=== PATIENT | male | born 1970 | race Caucasian/White ===

== ENCOUNTER 2019-10-06 19:32 | Emergency (ER) | payer BC ==
--- NOTE | 2019-10-06 19:44 | ERPHSYRPT ---
- History of Present Illness Time Seen by Provider: 10/06/19 19:44 Source: patient Exam Limitations: no limitations Physician History: This is a 49-year-old white male who has suffered no injury to his right hip or right lower extremity but noticed at about 1:00 this morning some pain in his right buttock area. It is traveled caudally down the posterior aspect of his right leg. He has no history of any blood clots and there is no bleeding or clotting disorders. There is been several medical emergencies in his family recently. He is concerned of possibility of a blood clot. He is here for evaluation of this. Method of Injury: other (No injury) Occurred: this morning Quality: intermittent, stabbing Severity of Pain-Max: mild (Filed) Severity of Pain-Current: mild Lower Extremities Pain: hip: right, thigh: right (Posteriorly) Modifying Factors: Improves With: nothing Associated Symptoms: none Allergies/Adverse Reactions: No Known Drug Allergies Allergy (Unverified 10/06/19 20:29) Travel Risk - International Travel Have you traveled outside of the country in past 3 weeks: No - Coronavirus Screening Are you exhibiting any of the following symptoms?: No Close contact with a COVID-19 positive Pt in past 14-21 Days: No - Review of Systems Constitutional: No Symptoms Eyes: No Symptoms Ears, Nose, & Throat: No Symptoms Respiratory: No Symptoms Cardiac: No Symptoms Abdominal/Gastrointestinal: No Symptoms Genitourinary Symptoms: No Symptoms Musculoskeletal: Other (Right hip and posterior upper leg) Skin: No Symptoms Neurological: No Symptoms Psychological: No Symptoms Endocrine: No Symptoms Hematologic/Lymphatic: No Symptoms Immunological/Allergic: No Symptoms All Other Systems: Reviewed and Negative - Past Medical History Pertinent Past Medical History: Yes Neurological History: No Pertinent History ENT History: No Pertinent History Cardiac History: Hypertension Respiratory History: No Pertinent History Endocrine Medical History: No Pertinent History Musculoskeletal History: No Pertinent History GI Medical History: No Pertinent History History: No Pertinent History Psycho-Social History: No Pertinent History Male Reproductive Disorders: No Pertinent History - Nursing Vital Signs Nursing Vital Signs: Initial Vital Signs Temperature 98.1 F 10/06/19 19:32 Pulse Rate 78 10/06/19 19:32 Respiratory Rate 16 10/06/19 19:32 Blood Pressure 174/103 10/06/19 19:32 O2 Sat by Pulse Oximetry 98 10/06/19 19:32 Pain Scale Pain Intensity 5 - Physical Exam General Appearance: no apparent distress, alert, anxiety Eyes, Ears, Nose, Throat Exam: normal ENT inspection, moist mucous membranes Neck Exam: normal inspection, non-tender, supple, full range of motion Cardiovascular/Respiratory Exam: chest non-tender Gastrointestinal/Abdominal Exam: non-tender Back Exam: normal inspection, normal range of motion, No CVA tenderness, No vertebral tenderness Hips Exam: right: normal inspection, normal range of motion, no evidence of injury, soft tissue tenderness, left: non-tender Legs Exam: right leg: soft tissue tenderness, left leg: non-tender, normal inspe ction, normal range of motion, no evidence of injury Knees Exam: bilateral knee: non-tender, normal inspection, normal range of motion, no evidence of injury Ankle Exam: bilateral ankle: non-tender, normal inspection, normal range of motion, no evidence of injury Foot Exam: bilateral foot: non-tender, normal inspection, normal range of motion, no evidence of injury Neuro/Tendon Exam: normal sensation, normal motor functions, normal tendon functions Mental Status Exam: alert, oriented x 3, cooperative Skin Exam: normal color, warm, dry SpO2 Interpretation: normal O2 Delivery: Room Air - Course Nursing assessment & vital signs reviewed: Yes Ordered Tests: Active Orders 24 hr Category Date Time Status D-DIMER QUANTITATIVE Stat Lab 10/06/19 22:05 Completed Lab/Rad Data: Laboratory Results 10/06/19 Range/Units 22:05 D-Dimer < 215 L (215-500) ng/mL - Progress Progress: unchanged, pain not gone completely Counseled pt/family regarding: lab results, diagnosis, need for follow-up - Departure Departure Disposition: Home Clinical Impression: Sciatica Condition: Stable Critical Care Time: No Referrals: [facility] [NON-STAFF PHY W/O PRIVILEGES] - Prescriptions: Cyclobenzaprine HCl 10 mg [Cyclobenzaprine 10 MG] 10 mg PO TID #10 tablet Prednisone 10 mg [Deltasone 10 mg] 10 mg PO TID #12 tablet
[2019-10-06 22:05] VITALS: O2SAT 96
[2019-10-06] MEDS ORDERED: Cyclobenzaprine 10 MG PO ONE (22:32)
[2019-10-06] MEDS ORDERED: Cyclobenzaprine 10 MG ONE (22:35)
[2019-10-06] MEDS ORDERED: DELTASONE 20 MG ONE (22:35)
[2019-10-06 22:40] VITALS: BP 137/87; PULSE 68
[2019-10-07] MEDS ORDERED: DELTASONE 20 MG PO ONE (22:32)
== END 2019-10-06 22:50 | disposition home or self-care (01) ==
LOC: ED 19:32
DX: M54.31 Sciatica, right side (principal)
CPT/HCPCS: 36415; 85379; 99284; A9270-GY